=== PATIENT | female | born 1950 | race African-American/Black ===

== ENCOUNTER → 2017-04-29 | Outpatient (CLI) | payer MEDICARE, OTHER ==
[~2017-04-29] MED LIST: AMINOPHYLLINE INJ/PF 250 MG/10 ML SDV IV ONE; REGADENOSON INJ 0.4 MG/5 ML DISP.SYRIN IV ONE
--- NOTE | 2017-04-29 12:59 | DRAGON STRESS TEST REPORT ---
INTRAVENOUS LEXISCAN CARDIOLITE STRESS TEST USING SINGLE PHOTON EMMISION COMPUTERIZED TOMOGRAPHIC. DATE OF PROCEDURE: April 29, 2017 INDICATION : Chest pain CARDIAC RISK FACTORS: Hypertension, dyslipidemia, abnormal EKG. RESTING EKG: Sinus rhythm, LVH with secondary ST-T wave changes. STRESS EKG: No significant changes noted with LexiScan bolus REASON FOR TERMINATION: Protocol. PROCEDURE REPORT: Baseline heart rate 72 beats per minute with blood pressure of 146/81. Patient had no significant complaints. Heart rate at 2 minutes post bolus 91 with a blood pressure of 163/62 3 minutes post bolus heart rate 76 with blood pressure of 151/85. No significant EKG changes were noted. Patient had no significant complaints during the procedure or postprocedure. Patient injected with Aminophyllin 75 mg at 3 minutes or later after Lexiscan bolus. CONCLUSIONS: Normal EKG and hemodynamic response to IV LexiScan. NUCLEAR DATA: At rest the patient was given [10.13] millicuries of technetium 99 sestamibi injected intravenously. As per protocol rest gated SPECT images were obtained. Subsequently the patient was given intravenous LexiScan at a dose of 0.4 mg in 5 mL intravenously, followed by flush with normal saline. Subsequently the stress dose of [30.7] millicuries of technetium 99 sestamibi was injected intravenously. As per protocol stress gated images were obtained. NUCLEAR INTERPRETATION: Both raw and processed data were used for interpretation. Visual, qualitative, computer-generated quantitative data was used. There was good myocardial uptake of technetium compound. Motion artifact and soft tissue attenuations were noted. Increased visceral uptake was noted. Significant diaphragmatic attenuation and also breast tissue attenuation was noted. Mild decreased uptake was noted involving the basal and mid inferior wall and also mid anterior wall, these are felt to be related to attenuation artifact and no definitive areas of transient perfusion defect noted. Clinical correlation is requested. No definitive areas of fixed perfusion defect or scars noted. EKG gated imaging showed LV EF at 47] %, rest and stress gated EF similar visually. T. I D. ratio was 0.97. Lung heart ratio noted to be within normal limits 0.30. No significant extracardiac and abnormal radiotracer activities were noted. RV free wall uptake was noted to be borderline increased. IMPRESSION: Also refer to comments under nuclear interpretation. Also test results needs to be interpreted in the context of pretest probability. 1. There is no definitive scintigraphic evidence of LexiScan induced myocardial ischemia. However there was significant diaphragmatic and breast tissue attenuation artifacts were noted which reduces confidence in the test to some extent. Clinical correlation is requested. 2. There is no definitive scintigraphic evidence of myocardial infarction/scar. 3. EKG gated imaging shows left ejection fraction of approximately 47 %. 4. Clinical correlation requested as occasionally single vessel disease or balanced ischemia could be missed. In approximately 10% of the cases Lexiscan may not cause adequate vasodilatory stress. RECOMMENDATIONS: Aggressive risk factor modification, medical therapy. Clinical correlation with echocardiogram derived ejection fraction. Inability to exercise by itself can lead to increased cardiovascular event risks. Consider cardiology consultation and or follow-up if clinically indicated. I AM AVAILABLE FOR CARDIOLOGY CONSULTATION AND FOLLOWUP IF REQUESTED BY MARIBEL Macias M.D., JONI Senior C Developer palm and back forger, Board certified in cardiovascular diseases, Nuclear cardiology, Echocardiography Cardiac CT and cardiac MRI Ph. [phone] [facility] HOSPITALAnli
== END ==
LOC: RAD 07:18
PROVIDERS: ATTEND Internal Medicine
DX: R07.9 Chest pain, unspecified (principal); R94.31 Abnormal electrocardiogram [ECG] [EKG]
CPT/HCPCS: 93017; 78452; A9500; J2785; J0280; Q9969

== ENCOUNTER → 2017-10-07 | Outpatient (CLI) | payer MEDICARE, OTHER ==
--- NOTE | 2017-10-07 13:54 | RADIOLOGY REPORT (SQ) ---
EXAM DESCRIPTION: CHEST PA/LATERAL COMPLETED DATE/TIME: 10/07/2017 11:15 am REASON FOR STUDY: COUGH COMPARISON: Chest film 06/19/2016, 06/26/2015 CT chest 09/20/2015 EXAM PARAMETERS: NUMBER OF VIEWS: two views TECHNIQUE: Digital Frontal and Lateral radiographic views of the chest acquired. RADIATION DOSE: NA LIMITATIONS: Large patient FINDINGS: LUNGS AND PLEURA: No opacities, masses or pneumothorax. No pleural effusion. MEDIASTINUM AND HILAR STRUCTURES: No masses or contour abnormalities. HEART AND VASCULAR STRUCTURES: Borderline cardiomegaly BONES: Osteoporotic without acute compression deformity HARDWARE: None in the chest. OTHER: No other significant finding. IMPRESSION: NO SIGNIFICANT RADIOGRAPHIC FINDING IN THE CHEST. TECHNICAL DOCUMENTATION: JOB ID: [id number] [employer]- All Rights Reserved
== END ==
LOC: OD 10:59
DX: R05 Cough (principal)
CPT/HCPCS: 71046

== ENCOUNTER → 2018-04-12 | Outpatient (CLI) | payer MEDICARE, OTHER | LOC: OD 10:14 | PROVIDERS: ATTEND Otolaryngology | DX: J01.91 Acute recurrent sinusitis, unspecified (principal) | CPT/HCPCS: 36415; 82785; 86003 ==

== ENCOUNTER 2018-06-09 09:00 | Observation (INO) | payer MEDICARE, OTHER ==
--- NOTE | 2018-06-04 12:58 | RADIOLOGY REPORT (SQ) ---
EXAM DESCRIPTION: CHEST PA/LATERAL COMPLETED DATE/TIME: 06/04/2018 12:36 pm REASON FOR STUDY: PRE OP COMPARISON: 10/07/2017. EXAM PARAMETERS: NUMBER OF VIEWS: two views TECHNIQUE: Digital Frontal and Lateral radiographic views of the chest acquired. RADIATION DOSE: NA LIMITATIONS: none FINDINGS: LUNGS AND PLEURA: No opacities, masses or pneumothorax. No pleural effusion. MEDIASTINUM AND HILAR STRUCTURES: No masses or contour abnormalities. HEART AND VASCULAR STRUCTURES: Heart normal size. No evidence for failure. BONES: No acute findings. HARDWARE: None in the chest. OTHER: No other significant finding. IMPRESSION: NO SIGNIFICANT RADIOGRAPHIC FINDING IN THE CHEST. TECHNICAL DOCUMENTATION: JOB ID: [id number] [employer]- All Rights Reserved Reading location - IP/workstation name: [email or web address]
--- NOTE | 2018-06-04 13:01 | EKG REPORT ---
SEVERITY:- ABNORMAL ECG - SINUS RHYTHM LVH WITH IVCD, LAD AND SECONDARY REPOL ABNRM LATERAL INFARCT, AGE INDETERMINATE : Confirmed by: Sincere Morrow MD 04-Jun-2018 13:00:37
[2018-06-04 13:09] LABS: ABSOLUTE EOSINOPHILS # (AUTO) 0.1 10^3/uL (0.0-0.6); ABSOLUTE LYMPHOCYTES (AUTO) 2.4 10^3/uL (0.5-4.7); ABSOLUTE MONOCYTES (AUTO) 0.5 10^3/uL (0.1-1.4); ABSOLUTE NEUT (AUTO) 2.9 10^3/uL (1.7-8.2); BASOPHILS % (AUTO) 0.7 % (0-2); EOSINOPHILS % (AUTO) 2.3 % (0-6); HEMATOCRIT 40.3 % (36.0-47.0); HEMOGLOBIN 13.4 g/dL (12.0-15.5); LYMPHOCYTES % (AUTO) 40.2 % (13-45); MEAN CORPUSCULAR HEMOGLOBIN 26.7 pg (27.0-33.4); MEAN CORPUSCULAR HGB CONC 33.3 g/dL (32.0-36.0); MEAN CORPUSCULAR VOLUME 80 fl (80-97); MONOCYTES % (AUTO) 8.3 % (3-13); PLATELET COUNT 227 10^3/uL (150-450); RED BLOOD COUNT 5.03 10^6/uL (3.72-5.28); RED CELL DISTRIBUTION WIDTH 13.8 % (11.5-14.0); SEGMENTED NEUTROPHILS % (AUTO) 48.5 % (42-78); TOTAL CELLS COUNTED % (AUTO) 100 %; WHITE BLOOD COUNT 5.9 10^3/uL (4.0-10.5)
[2018-06-04 13:41] LABS: ANION GAP 13 (5-19); BLOOD UREA NITROGEN 17 mg/dL (7-20); CALCIUM 9.7 mg/dL (8.4-10.2); CARBON DIOXIDE 29 mmol/L (22-30); CHLORIDE 105 mmol/L (98-107); GLUCOSE 114 mg/dL (75-110); POTASSIUM 4.3 mmol/L (3.6-5.0); SODIUM 147.1 mmol/L (137-145)
[~2018-06-09 09:00] MED LIST changes: -AMINOPHYLLINE INJ/PF 250 MG/10 ML SDV IV ONE; +CEFAZOLIN 2 GM/D5W RTU 2 GM/50 ML RTUPB IV PRN; +LACTATED RINGERS 1000 ML IV PRN; +LIDOCAINE 0.5% INJ-PF (5 MG/ML) 50 ML SDV SUBCUT PRN; -REGADENOSON INJ 0.4 MG/5 ML DISP.SYRIN IV ONE
[2018-06-09] MEDS ORDERED: ONDANSETRON HCL INJ/PF 4 MG/2 ML SDV ONE ×2 (09:08→19:19)
[2018-06-09] MEDS ORDERED: GLYCOPYRROLATE 1 MG/5 ML SYRINGE ONE (09:08)
[2018-06-09] MEDS ORDERED: SUCCINYLCHOLINE CHLORIDE INJ 200 MG/10 ML VIAL ONE (09:08)
[2018-06-09] MEDS ORDERED: DEXAMETHASONE SOD PHOSPHATE INJ 4 MG/1 ML VIAL ONE (09:08)
[2018-06-09] MEDS ORDERED: FENTANYL CITRATE INJ/PF 250 MCG/5 ML AMPULE ONE (10:25)
[2018-06-09] MEDS ORDERED: ACETAMINOPHEN 1,000 MG/100 ML RTUPB IV ONE (10:26)
[2018-06-09] MEDS ORDERED: MIDAZOLAM 2 MG/2 ML INJ ONE (10:26)
[2018-06-09] MEDS ORDERED: PROPOFOL INJ 200 MG/20 ML VIAL IV ONE ×2 (10:26→15:22)
[2018-06-09 10:36] LABS: ALBUMIN 4.6 g/dL (3.5-5.0); PHOSPHORUS 4.3 mg/dL (2.5-4.5)
[2018-06-09] MEDS ORDERED: LIDOCAINE 2%/EPINEPHRINE INJ 1.7 ML CARTRIDGE ONE (12:03)
--- NOTE | 2018-06-09 13:57 | EKG REPORT ---
SEVERITY:- ABNORMAL ECG - SINUS RHYTHM LVH WITH IVCD AND SECONDARY REPOL ABNRM LATERAL INFARCT, AGE INDETERMINATE : Confirmed by: Sincere Morrow MD 09-Jun-2018 13:55:49
[2018-06-09] MEDS ORDERED: EPHEDRINE SULFATE INJ 50 MG/1 ML AMPULE ONE (14:24)
[2018-06-09] MEDS ORDERED: PROMETHAZINE HCL INJ 25 MG/1 ML VIAL IV PRN ×4 (14:55→19:29)
[2018-06-09] MEDS ORDERED: DIPHENHYDRAMINE HCL 50 MG/ML VIAL IV PRN ×2 (14:55→19:29)
[2018-06-09] MEDS ORDERED: MORPHINE SULFATE 10 MG/ML INJ IV PRN ×2 (14:55→18:23)
[2018-06-09] MEDS ORDERED: MEPERIDINE HCL/PF INJ 25 MG/1 ML DISP.SYRIN IV PRN (14:55)
[2018-06-09] MEDS ORDERED: FENTANYL CITRATE INJ/PF 100 MCG/2 ML AMPUL IV PRN ×5 (14:55→19:29)
[2018-06-09] MEDS ORDERED: RINGERS SOLUTION,LACTATED 1,000 ML IV PRN (18:23)
[2018-06-09] MEDS ORDERED: HYDROCODONE/ACETAMINOPHEN 5-325 MG TABLET PO PRN (18:23)
[2018-06-09] MEDS ORDERED: ONDANSETRON HCL INJ/PF 4 MG/2 ML SDV IV PRN ×2 (18:23→19:29)
--- NOTE | 2018-06-09 19:25 | PDOC CONSULTATION ---
Consultation Consult Date: 06/09/18 Attending physician:: CHANCE OLIVEIRA Consult reason:: Preop cardiovascular clearance History of Present Illness Admission Date/PCP: 06/09/18 09:20 MERCED YADAV MD Patient complains of: Patient here for thyroid surgery. History of Present Illness: SHAY PORTILLO is a 67 year old female, who is preop for thyroid surgery. Patient had some EKGs which showed some changes as reported to be consistent with prior lateral HI. I was therefore asked to evaluate patient and cleared her. On questioning patient denied any recent chest, neck discomfort for at least last 2-4 weeks. She denied any change in shortness of breath. She is chronically short of breath on [id number] exertion but this has not worsened. Patient has chronic intermittent pedal edema again this has not changed. Patient denied any palpitations, syncope, near syncope. Patient had a stress test last year which was noted to be negative for pharmacologic stress- induced ischemia. A 2D echocardiogram in 2013 had shown normal LVEF. Patient does describe history of loud habitual snoring, daytime fatigue and sleepiness. Past Medical History Cardiac Medical History: Reports: Hypertension, Heart Murmur Denies: Atrial Fibrillation, Congestive Heart Failure, Coronary Artery Disease, Myocardial Infarction, Hyperlipidema, Peripheral Vascular Disease Pulmonary Medical History: Denies: Sleep Apnea - NOT DIAGNOSED- HAVING TEST SOON Neurological Medical History: Endocrine Medical History: Reports: Hypothyroidism - NODULES ON THYROID Denies: Diabetes Mellitus Type 1, Diabetes Mellitus Type 2, Hyperthyroidism Malignancy Medical History: GI Medical History: Reports: Gastroesophageal Reflux Disease Denies: Crohn's Disease, Hiatal Hernia Musculoskeltal Medical History: Reports: Arthritis Denies: Fibromyalgia Hematology: Past Surgical History Past Surgical History: Reports: Tubal Ligation Denies: Amputation, Appendectomy, Section, Cholecystectomy, Colostomy, Coronary Artery Bypass Graft, Gastric Bypass Surgery, Herniorrhaphy, Hysterectomy, Mastectomy, Pacemaker, Tonsillectomy Social History Information Source: Patient Smoking Status: Former Smoker Hx Recreational Drug Use: No Hx Prescription Drug Abuse: No - Advance Directive Resuscitation Status: Full Code Family History Family History: Hypertension Parental Family History Reviewed: Yes Children Family History Reviewed: Yes Sibling(s) Family History Reviewed.: Yes Medication/Allergy Home Medications: Amlodipine Besylate 10 mg PO DAILY 12/02/15 Cetirizine HCl [Zyrtec 10 mg Tablet] 1 tab PO DAILY 12/02/15 Furosemide [Lasix 40 mg Tablet] 40 mg PO DAILY 12/02/15 Losartan Potassium 100 mg PO DAILY 12/02/15 Allergies/Adverse Reactions: No Known Allergies Allergy (Verified 06/04/18 10:43) Review of Systems Review of Systems: Please see history of present illness and past medical history as wall. Constitutional: No fever or chills reported. Head : No recent chronic headaches, recent head injury. Eyes: No recent eye pain, diplopia, redness, discharge, acute visual changes. Ears: No recent chronic ear pain, acute hearing loss, ear discharge. Oral cavity: No recent ulcerations, bleeding, oral cavity discomfort. Neck: No recent acute neck pain reported. Hematologic: No recent easy bruising or bleeding. Lymphatic: No recent lymph node enlargement reported. Cardiovascular system review: See history of present illness. Respiratory system review: No hemoptysis or blood clots in the lungs reported. Mild Shortness of breath on exertion Gastrointestinal system review: Negative for any recent acute hematemesis, melena. Genitourinary system review: No recent acute or chronic hematuria, flank pain, UTI etc. reported. Skin system review: Negative for any recent abnormal bruising, no rash, no pruritus reported. Neurologic: No prior history of strokes, mini strokes, seizure disorder. Psychologic: No history of major psychosis or major depression reported. Musculoskeletal: Minor aches and pains reported. No acute joint swelling reported. Endocrine: No recent polyuria, polydipsia, recent heat or cold intolerance. Physical Exam Vital Signs: Temp Pulse Resp BP Pulse Ox 98.2 F 64 16 189/65 H 96 06/09/18 09:30 06/09/18 09:30 06/09/18 09:30 06/09/18 09:30 06/09/18 09:30 Intake & Output 06/08/18 06/09/18 06/10/18 06:59 06:59 06:59 Intake Total 50 Balance 50 Exam: GENERAL: well-nourished and in no acute distress. Alert and oriented x3 HEAD: Atraumatic, normocephalic. EYES: Pupils equal round and reactive to light, extraocular movements intact, sclera anicteric, conjunctiva are normal. ENT: TMs normal, nares patent, oropharynx clear without exudates. Moist mucous membranes. No oral ulcerations or bleeding gums noted NECK: supple without lymphadenopathy. Trachea is central. No cervical or axillary lymphadenopathy noted. Carotids are 2+, JVD WNL mild thyroid enlargement noted. LUNGS: Respiration seems nonlabored, no significant accessory muscle action noted. Breath sounds clear to auscultation bilaterally and equal noted. No wheezes rales or rhonchi noted. No significant dullness noted on percussion. CHEST: Palpation of the chest wall shows no significant chest wall tenderness. 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 ABDOMEN: Soft, no significant tenderness appreciated, normoactive bowel sounds. No guarding, no rebound. No rigidity noted . No masses appreciated. EXTREMITIES: Pedal pulses are 1-2+, no calf tenderness noted. No clubbing or cyanosis. negative pedal edema noted NEUROLOGICAL: Focused neurological exam showed no significant neurologic deficit. Normal speech, no focal weakness appreciated. PSYCH: Normal mood, normal affect. Judgment and insight within normal limits. SKIN: No significant ecchymosis, skin is noted to be warm. MUSCULOSKELETAL EXAM: No significant acute joint swelling noted. Results Laboratory Results: 06/04/18 12:00 06/09/18 09:48 06/09/18 06/09/18 06/09/18 09:48 09:48 09:48 Potassium 4.0 Calcium 10.0 Phosphorus 4.3 Magnesium 1.8 Albumin 4.6 PTH Intact 167.9 H EKG Comments: Showed sinus rhythm, LVH with minor nonspecific ST-T wave changes, versus LVH related Impressions: Chest X-Ray 06/04/18 00:00 IMPRESSION: NO SIGNIFICANT RADIOGRAPHIC FINDING IN THE CHEST. Assessment & Plan - Diagnosis (1) Preoperative cardiovascular examination Is this a current diagnosis for this admission?: Yes (2) Hypertension Qualifiers: Hypertension type: essential hypertension Qualified Code(s): I10 - Essential (primary) hypertension Is this a current diagnosis for this admission?: Yes (3) Sleep-disordered breathing Is this a current diagnosis for this admission?: Yes (4) Obesity Qualifiers: Obesity type: unspecified obesity type Obesity classification: unspecified obesity classification Is this a current diagnosis for this admission?: Yes (5) Thyroid mass of unclear etiology Is this a current diagnosis for this admission?: Yes - Notes Notes: Preop cardiovascular examination: Patient noted to be stable from cardiac standpoint without any chest pain, significant shortness of breath or any cardiac dysrhythmia for at least last 2-4 weeks. Patient maintaining sinus rhythm. Patient is in stable cardiac condition to go for surgery. Patient was therefore cleared. Patient may benefit from beta-brian therapy postop. Hypertension: Resume antihypertensive postop. Obesity: Patient has been encouraged in gradual weight loss. Sleep disordered breathing: Patient does describe history of loud snoring, daytime fatigue and sleepiness. Patient will benefit from a sleep apnea evaluation as an outpatient. I did give my card for such an evaluation if she wishes to follow-up with me. - Time Time Spent: 30 to 50 Minutes - More than 50% of the time spent coordinating care , discussing management plans with involved caregivers. Management plans discussed with involved personnels. Medical decision making was of moderate to high complexity, patient's has multiple comorbidities. Medications reviewed and adjusted accordingly: Yes
[2018-06-09] MEDS ORDERED: ONDANSETRON 4 MG TAB.RAPDIS PO PRN (19:28)
--- NOTE | 2018-06-09 19:49 | EKG REPORT ---
SEVERITY:- DEFECTIVE ECG - SINUS RHYTHM IVCD, CONSIDER ATYPICAL LBBB : Confirmed by: Sincere Morrow MD 09-Jun-2018 19:48:05
[2018-06-09 21:27] LABS: ALBUMIN 4.1 g/dL (3.5-5.0); PHOSPHORUS 5.3 mg/dL (2.5-4.5)
[2018-06-10] MEDS ORDERED: ACETAMINOPHEN 325 MG TABLET ONE (09:52)
[2018-06-10] MEDS ORDERED: ACETAMINOPHEN 325 MG TABLET PO PRN (09:58)
[2018-06-10] MEDS ORDERED: FUROSEMIDE 40 MG TABLET PO SCH (10:00)
[2018-06-10] MEDS ORDERED: LOSARTAN POTASSIUM 50 MG TABLET PO SCH (10:00)
[2018-06-10] MEDS ORDERED: CETIRIZINE 10 MG TABLET PO SCH (10:00)
[2018-06-10] MEDS ORDERED: AMLODIPINE BESYLATE 10 MG TABLET PO SCH (10:00)
[2018-06-10 10:58] LABS: CALCIUM 8.9 mg/dL (8.4-10.2); PHOSPHORUS 4.4 mg/dL (2.5-4.5)
[2018-06-10 15:22] LABS: ALBUMIN 3.8 g/dL (3.5-5.0); CALCIUM 8.4 mg/dL (8.4-10.2); PHOSPHORUS 4.4 mg/dL (2.5-4.5)
[2018-06-10 18:20] VITALS: BP 139/61
--- NOTE | 2018-06-10 20:31 | PDOC PROGRESS REPORT ---
Subjective Progress Note for:: 06/10/18 Subjective:: Patient seen postop day 1. Doing well. Patient seems to be doing better with gradual improvement. Pt is denying any chest arm or neck discomfort. Patient denying any PND, orthopnea. Patient denied any sustained palpitations, dizziness, syncope, near syncope. Patient denying any fever chills. Patient denying any other significant discomfort. Patient is maintaining sinus rhythm. Review of systems: Rest review of systems negative. Medications: Medications have been reviewed. Reason For Visit: S/P TOTAL THYROIDECTOMY WITH PLAN FOR POSTOP Physical Exam Vital Signs: Temp Pulse Resp BP Pulse Ox 97.9 F 80 16 139/61 H 98 06/10/18 18:10 06/10/18 18:10 06/10/18 18:10 06/10/18 18:10 06/10/18 18:10 Pulse Oximeter Continuous Start: 06/09/18 18: 25 Freq: RTQ4 Status: Complete Document 06/10/18 12:00 [facility] (Rec: 06/10/18 12:08 [facility] [id number]) Pulse Oximetry Assessment Oxygen Saturation (92-100) 91 Oxygen Delivery Method Room Air Fraction of Inspired Oxygen (FIO2) 21 Equipment Usage Equipment in Use Continuous SpO2 Machine # [id number] Intake & Output 06/09/18 06/10/18 06/11/18 06:59 06:59 06:59 Intake Total 1620 480 Output Total 300 600 Balance 1320 -120 Weight 128.2 kg Exam: GENERAL: well-nourished and in no acute distress. Alert and oriented x3 HEAD: Atraumatic, normocephalic. EYES: Pupils equal round and reactive to light, extraocular movements intact, sclera anicteric, conjunctiva are normal. ENT: TMs normal, nares patent, oropharynx clear without exudates. Moist mucous membranes. No oral ulcerations or bleeding gums noted NECK: supple without lymphadenopathy. Trachea is central. No cervical or axillary lymphadenopathy noted. Carotids are 2+, JVD WNL scar of thyroid surgery noted. LUNGS: Respiration seems nonlabored, no significant accessory muscle action noted. Breath sounds clear to auscultation bilaterally and equal noted. No wheezes rales or rhonchi noted. No significant dullness noted on percussion. CHEST: Palpation of the chest wall shows no significant chest wall tenderness. 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 ABDOMEN: Soft, no significant tenderness appreciated, normoactive bowel sounds. No guarding, no rebound. No rigidity noted . No masses appreciated. EXTREMITIES: Pedal pulses are 1-2+, no calf tenderness noted. No clubbing or cyanosis. negative pedal edema noted NEUROLOGICAL: Focused neurological exam showed no significant neurologic deficit. Normal speech, no focal weakness appreciated. PSYCH: Normal mood, normal affect. Judgment and insight within normal limits. SKIN: No significant ecchymosis, skin is noted to be warm. MUSCULOSKELETAL EXAM: No significant acute joint swelling noted. Results Laboratory Results: 06/04/18 12:00 06/09/18 09:48 06/09/18 06/09/18 06/10/18 21:05 21:05 10:07 Calcium 9.0 8.9 Phosphorus 5.3 H 4.4 Magnesium 1.5 L 1.6 Albumin 4.1 4.0 PTH Intact 8.9 L 06/10/18 06/10/18 10:07 14:53 Calcium 8.4 Phosphorus 4.4 Magnesium 1.5 L Albumin 3.8 PTH Intact 15.9 EKG Comments: Telemetry shows sinus rhythm without any sustained tachycardia or bradycardia. Impressions: Chest X-Ray 06/04/18 00:00 IMPRESSION: NO SIGNIFICANT RADIOGRAPHIC FINDING IN THE CHEST. Assessment & Plan - Diagnosis (1) Preoperative cardiovascular examination Is this a current diagnosis for this admission?: Yes (2) Hypertension Qualifiers: Hypertension type: essential hypertension Qualified Code(s): I10 - Essential (primary) hypertension Is this a current diagnosis for this admission?: Yes (3) Sleep-disordered breathing Is this a current diagnosis for this admission?: Yes (4) Obesity Qualifiers: Obesity type: unspecified obesity type Obesity classification: unspecified obesity classification Is this a current diagnosis for this admission?: Yes (5) Thyroid mass of unclear etiology Is this a current diagnosis for this admission?: Yes - Notes Notes: Patient status post surgery. She has done well. Hypertension: Reasonably well-controlled continue with home antihypertensive. Sleep disordered breathing: Patient prefers to follow-up with me for further evaluation and management of sleep apnea if present. Obesity: Patient has been advised in gradual weight loss. Thyroid mass: Patient has been advised to follow-up with surgeon regarding etiology etc. - Time Time with patient: 15-25 minutes - More than 50% of the time spent coordinating care, discussing management plans with involved caregivers. Management plans discussed with involved personnels. Medical decision making was of moderate complexity, patient's has multiple comorbidities. Medications reviewed and adjusted accordingly: Yes
--- NOTE | 2018-06-13 23:10 | OPERATIVE REPORT E ---
Operative Report NAME: SHAY PORTILLO : 1950 AGE: 67Y DATE OF SURGERY: 06/09/2018 ROOM: 405 PREOPERATIVE DIAGNOSIS: MULTINODULAR GOITER. POSTOPERATIVE DIAGNOSIS: MULTINODULAR GOITER. OPERATION PERFORMED: 1. Total thyroidectomy. 2. Intraoperative noninvasive nerve monitoring (NIM) SURGEON: AARON CORTES D.O. ANESTHESIA: General endotracheal. ANESTHESIA STAFF: Tabatha ZAMARRIPA. ESTIMATED BLOOD LOSS: 30 mL. FLUIDS: 1100 mL. COMPLICATIONS: None. DRAINS: None. SPONGE COUNT: Verified. MATERIALS FORWARDED SPECIMEN: Total thyroid gland specimen. FINDINGS: 1. Total thyroid gland specimen with dominant right thyroid nodule measuring 39 x 30 mm in dimensions. 2. Parathyroid gland prospects X 4 were identified and preserved, and the smallest of the prospects, being the left superior parathyroid gland, was reimplanted into a pocket in the left strap muscle. 3. Bilateral recurrent laryngeal nerves were identified and preserved and were with adequate stimulation at 1 mAmp during the case as well as at the end of the case. 4. There was no concerning lymphadenopathy identified. INDICATIONS: This is a 67-year-old -[place] female who was seen and evaluated in the [facility] office. The patient had been referred for and she complained of a history of multinodular goiter with worsening compressive symptoms over the past year. The patient was noted to have a right dominant nodule measuring 39 x 30 mm in dimensions. There was also a left thyroid nodule measuring 10 x 9.6 mm in dimension. After extensive discussion with the patient with consideration of the almost 4 cm nodule on the right, a 1 cm nodule on the left, and worsening compressive symptoms over the past year the patient desired to proceed with a total thyroidectomy. The risks and complications of the procedure were all discussed in detail with the patient. She voiced an understanding of the described surgical plan, agreed to proceed, and consent was obtained. PROCEDURE IN DETAIL: The patient was taken to the main operating room and was placed on the operating room table in the supine position. Appropriate monitors were placed. Using mask and IV access, general anesthesia was induced. The patient was transorally intubated with the NIM endotracheal tube without difficulty. The NIM nerve monitoring system was set up and tested appropriately before beginning the case. The patient underwent a planned surgical incision with the site marked with a surgical marking pen, which was next infiltrated with local anesthetic with epinephrine. The patient was then prepped and draped in a sterile fashion for thyroid surgery. At this point the skin was sharply incised down to the level of the subcutaneous tissues and platysma. Flaps were elevated in a subplatysmal plane without difficulty. The strap muscles were identified in the midline and were divided and exposed the thyroid gland. The left thyroid lobe was mobilized and the superior and inferior pole vasculature were divided with the Harmonic handpiece. Bipolar electrocautery was also used throughout the case. The gland was rolled more medially to expose the area of Cavazos's ligament. During this process left parathyroid gland prospects were identified and the smallest of the parathyroid gland prospects on either side, with the left superior which was confirmed as parathyroid gland tissue on frozen section evaluation. This was placed in saline and at the end of the case was reimplanted into a pocket in the left strap muscle and the pocket was oversewn with 6-0 Prolene suture. At this point the left recurrent laryngeal nerve was identified and preserved and tested appropriately at 1 mAmp. The area of Cavazos's ligament was released and the gland was brought onto the anterior tracheal aspect. Attention was turned to the right side. The strap muscles were lateralized as they had been on the left and the thyroid lobe was identified and mobilized. Superior and inferior pole vasculature was again clearly identified and divided with the Harmonic handpiece. There were 2 parathyroid gland prospects that were identified on the right and they were preserved. The gland was released and rolled more medial to expose the area of Cavazos's ligament. The right recurrent laryngeal nerve was identified and preserved. The gland was released from Cavazos's ligament and freed from the anterior tracheal wall. The pyramidal lobe was also identified and released. The thyroid gland specimen was passed off for permanent pathology evaluation. The wound bed was thoroughly irrigated and bipolar electrocautery was used to provide adequate hemostasis. Once achieved there was 1 piece of Surgicel approximately 2 x 2 cm in size that was placed over each recurrent laryngeal nerve distribution. The strap muscles were next reapproximated in the midline with 5-0 Vicryl suture. The reimplantation of the left superior parathyroid gland was addressed as above. The platysma was reapproximated with 5-0 Vicryl suture as was the deep subcutaneous tissue layers. Next, the deep dermal layers were reapproximated with 5-0 Monocryl suture. One final continuous deep dermal layer was placed to reapproximate the skin margins, and this was completed with 5-0 Monocryl suture. Next, the skin was cleaned and dried followed by placement of Mastisol and Steri-Strips. The patient was then returned to the anesthesia staff and was allowed to emerge from general anesthesia. The patient was extubated in the main operating room and was then transported to the postanesthesia recovery unit in stable condition. There were no complications. DICTATING PHYSICIAN: AARON CORTES D.O. [id number] PHY#: [id number] ID: [id number] JOB#: [id number] ACCT: [id number] cc:AARON CORTES D.O. > MTDD
== END 2018-06-10 18:54 | disposition home or self-care (01) ==
LOC: INTOOBSV 09:20 → INOR 09:20 → 4N 20:05
PROVIDERS: ADMIT Otolaryngology; ATTEND Otolaryngology
PROC: 0GBJ0ZZ Excision of Thyroid Gland Isthmus, Open Approach (ICD-10-PCS; 2018-06-09)
PROC: 0GTK0ZZ Resection of Thyroid Gland, Open Approach (ICD-10-PCS; principal; 2018-06-09 12:00)
DX: E04.2 Nontoxic multinodular goiter (principal); Z01.810 Encounter for preprocedural cardiovascular examination; I10 Essential (primary) hypertension; G47.30 Sleep apnea, unspecified; E66.9 Obesity, unspecified; R94.31 Abnormal electrocardiogram [ECG] [EKG]; Z87.891 Personal history of nicotine dependence; Z82.49 Family history of ischemic heart disease and other diseases of the circulatory system; Z79.899 Other long term (current) drug therapy
CPT/HCPCS: 93005 ×2; 36415 ×3; 82040 ×2; 82310 ×2; 83735 ×2; 84100 ×2; 84132; 85025; 80048; 83970 ×2; 88305 ×2; 88307 ×2; 88331 ×2; 71046; 93010 ×2; 94762 ×2; 60240; G0378 ×3; A9270 ×5; J2250; J3490 ×3; J1100; J3010; J0330; J2405; J2704; J0690; J0131; 320

== ENCOUNTER → 2018-06-14 | Outpatient (CLI) | payer MEDICARE, OTHER ==
[2018-06-14 17:52] LABS: ALBUMIN 4.1 g/dL (3.5-5.0); CALCIUM 7.8 mg/dL (8.4-10.2); PHOSPHORUS 5.2 mg/dL (2.5-4.5)
== END ==
LOC: OD 16:53
PROVIDERS: ATTEND Otolaryngology
DX: E04.2 Nontoxic multinodular goiter (principal)
CPT/HCPCS: 36415; 82040; 82310; 83735; 83970; 84100

== ENCOUNTER → 2018-07-30 | Outpatient (CLI) | payer MEDICARE, OTHER | LOC: OD 11:59 | PROVIDERS: ATTEND Internal Medicine | DX: E89.0 Postprocedural hypothyroidism (principal); E04.2 Nontoxic multinodular goiter; J30.9 Allergic rhinitis, unspecified | CPT/HCPCS: 36415; 82785; 83519; 84439; 86003 ==

== ENCOUNTER → 2018-10-22 | Outpatient (CLI) | payer MEDICARE, OTHER ==
--- NOTE | 2018-10-22 15:36 | RADIOLOGY REPORT (SQ) ---
EXAM DESCRIPTION: MRI LT UPPER JOINT WITHOUT COMPLETED DATE/TIME: 10/22/2018 1:30 pm REASON FOR STUDY: IMPINGEMENT SYNDROME OF LEFT SHOULDER (M75.42) M75.42 IMPINGEMENT SYNDROME OF LEF T SHOULDER COMPARISON: None. TECHNIQUE: Left shoulder images acquired and stored on PACS. Multiplanar imaging to include fat sens itive sequences such as T1, water sensitive sequences such as FST2/STIR, cartilage sensitive sequence s such as FSPD/gradient-echo sequences. LIMITATIONS: None. FINDINGS: BONE MARROW AND CORTEX: No worrisome bone lesions or marrow replacement. No occult fractur es. JOINT OR BURSAL EFFUSION: There is fluid in the subacromial/subdeltoid bursa related to a full-thickn ess tear in the distal infraspinatus tendon GLENO-HUMERAL ARTICULATION: No malalignment. There is focal chondromalacia along the anterior half o f the bony glenoid with subcortical cyst formation best shown on coronal images 7 and 8. ACROMION AND AC JOINT: Type 2 acromion, with mild acromioclavicular joint hypertrophy on sagittal im age 9 and coronal image 9. ROTATOR CUFF AND INTERVAL: There is full-thickness tear along the anterior edge of the infraspinatus tendon, best shown on sagittal images 3-6, and coronal images 10 through 12. There is mild undersurf cristiano tendinopathy of the remainder of the infraspinatus tendon, and mild tendinopathy of the distal johnson praspinatus tendon. Subscapularis is intact. No rotator interval tear LABRUM AND BICEPS LABRAL COMPLEX: Intra-articular air long head biceps tendon is intact. Superior labrum grossly intact. REMAINDER OF LABRUM AND IGHL : No gross tear or paralabral cyst formation. Labral evaluation is less than optimal without joint distention. There is thickening of IGHL, and a small axillary recess of the glenohumeral joint suggesting adhesive capsulitis. PERIARTICULAR AND ADJACENT SOFT TISSUES: No masses or abnormal nodes. OTHER: No other significant finding. IMPRESSION: Full-thickness tear anterior edge of the infraspinatus tendon Small axillary recess of the left shoulder joint with thickening of the inferior glenohumeral ligamen t suggesting adhesive capsulitis TECHNICAL DOCUMENTATION: JOB ID: [id number] [employer]- All Rights Reserved Reading location - IP/workstation name: [email or web address]
== END ==
LOC: RAD 12:33
PROVIDERS: ATTEND Orthopaedic Surgery Sports Medicine
DX: M75.42 Impingement syndrome of left shoulder (principal); M75.122 Complete rotator cuff tear or rupture of left shoulder, not specified as traumatic

== ENCOUNTER → 2018-11-23 | Outpatient (CLI) | payer MEDICARE, OTHER ==
[2018-11-23 08:24] LABS: ABSOLUTE BASOPHILS # (AUTO) 0.1 10^3/uL (0.0-0.2); ABSOLUTE EOSINOPHILS # (AUTO) 0.2 10^3/uL (0.0-0.6); ABSOLUTE LYMPHOCYTES (AUTO) 2.8 10^3/uL (0.5-4.7); ABSOLUTE MONOCYTES (AUTO) 0.7 10^3/uL (0.1-1.4); ABSOLUTE NEUT (AUTO) 3.3 10^3/uL (1.7-8.2); BASOPHILS % (AUTO) 0.7 % (0-2); EOSINOPHILS % (AUTO) 2.7 % (0-6); HEMATOCRIT 39.2 % (36.0-47.0); HEMOGLOBIN 13.1 g/dL (12.0-15.5); LYMPHOCYTES % (AUTO) 39.6 % (13-45); MEAN CORPUSCULAR HEMOGLOBIN 26.3 pg (27.0-33.4); MEAN CORPUSCULAR HGB CONC 33.6 g/dL (32.0-36.0); MEAN CORPUSCULAR VOLUME 78 fl (80-97); MONOCYTES % (AUTO) 9.9 % (3-13); PLATELET COUNT 233 10^3/uL (150-450); RED CELL DISTRIBUTION WIDTH 13.6 % (11.5-14.0); SEGMENTED NEUTROPHILS % (AUTO) 47.1 % (42-78); TOTAL CELLS COUNTED % (AUTO) 100 %
[2018-11-23 08:48] LABS: ALANINE AMINOTRANSFERASE 11 U/L (9-52); ALBUMIN 4.3 g/dL (3.5-5.0); ALKALINE PHOSPHATASE 83 U/L (38-126); ANION GAP 10 (5-19); ASPARTATE AMINO TRANSFERASE 21 U/L (14-36); BILIRUBIN,DIRECT 0.3 mg/dL (0.0-0.4); BILIRUBIN,TOTAL 0.6 mg/dL (0.2-1.3); BLOOD UREA NITROGEN 16 mg/dL (7-20); CALCIUM 9.6 mg/dL (8.4-10.2); CARBON DIOXIDE 27 mmol/L (22-30); CHLORIDE 107 mmol/L (98-107); CHOLESTEROL 170.54 mg/dL (0-200); GLUCOSE 104 mg/dL (75-110); SODIUM 143.6 mmol/L (137-145); TOTAL PROTEIN 7.2 g/dL (6.3-8.2); TRIGLYCERIDES 126 mg/dL (<150)
[2018-11-23 08:58] LABS: DIRECT LDL 88 mg/dL (<100)
== END ==
LOC: OD 07:52
PROVIDERS: ATTEND Internal Medicine
DX: I10 Essential (primary) hypertension (principal); E78.5 Hyperlipidemia, unspecified; K21.9 Gastro-esophageal reflux disease without esophagitis; M19.90 Unspecified osteoarthritis, unspecified site; R53.83 Other fatigue
CPT/HCPCS: 36415; 80053; 80061; 84443; 85025

== ENCOUNTER → 2019-08-11 | Outpatient (CLI) | payer MEDICARE, OTHER ==
[2019-08-11 10:29] LABS: ABSOLUTE EOSINOPHILS # (AUTO) 0.2 10^3/uL (0.0-0.6); ABSOLUTE LYMPHOCYTES (AUTO) 1.8 10^3/uL (0.5-4.7); ABSOLUTE MONOCYTES (AUTO) 0.5 10^3/uL (0.1-1.4); ABSOLUTE NEUT (AUTO) 2.8 10^3/uL (1.7-8.2); BASOPHILS % (AUTO) 0.8 % (0-2); EOSINOPHILS % (AUTO) 3.7 % (0-6); HEMATOCRIT 38.2 % (36.0-47.0); HEMOGLOBIN 12.7 g/dL (12.0-15.5); LYMPHOCYTES % (AUTO) 33.7 % (13-45); MEAN CORPUSCULAR HEMOGLOBIN 26.5 pg (27.0-33.4); MEAN CORPUSCULAR HGB CONC 33.1 g/dL (32.0-36.0); MEAN CORPUSCULAR VOLUME 80 fl (80-97); MONOCYTES % (AUTO) 9.4 % (3-13); PLATELET COUNT 208 10^3/uL (150-450); RED BLOOD COUNT 4.78 10^6/uL (3.72-5.28); RED CELL DISTRIBUTION WIDTH 13.7 % (11.5-14.0); SEGMENTED NEUTROPHILS % (AUTO) 52.4 % (42-78); TOTAL CELLS COUNTED % (AUTO) 100 %; WHITE BLOOD COUNT 5.4 10^3/uL (4.0-10.5)
[2019-08-11 10:41] LABS: ALBUMIN 4.2 g/dL (3.5-5.0); ALKALINE PHOSPHATASE 86 U/L (38-126); ANION GAP 9 (5-19); ASPARTATE AMINO TRANSFERASE 23 U/L (14-36); BILIRUBIN,DIRECT 0.1 mg/dL (0.0-0.4); BILIRUBIN,TOTAL 0.7 mg/dL (0.2-1.3); BLOOD UREA NITROGEN 16 mg/dL (7-20); CARBON DIOXIDE 28 mmol/L (22-30); CHLORIDE 104 mmol/L (98-107); CHOLESTEROL 182.78 mg/dL (0-200); GLUCOSE 96 mg/dL (75-110); TOTAL PROTEIN 7.2 g/dL (6.3-8.2); TRIGLYCERIDES 151 mg/dL (<150)
[2019-08-11 10:52] LABS: DIRECT LDL 95 mg/dL (<100)
[2019-08-11 11:00] LABS: VLDL CHOLESTEROL 30.2 mg/dL (10-31)
== END ==
LOC: OD 09:19
PROVIDERS: ATTEND Internal Medicine
DX: I10 Essential (primary) hypertension (principal); R53.83 Other fatigue; E78.5 Hyperlipidemia, unspecified; E83.52 Hypercalcemia; E03.9 Hypothyroidism, unspecified; Z79.899 Other long term (current) drug therapy
CPT/HCPCS: 36415; 80053; 80061; 83036; 83525; 84443; 85025

== ENCOUNTER → 2019-11-30 | Outpatient (CLI) | payer MEDICARE, OTHER ==
[2019-11-30 12:53] LABS: A TYPE INFLUENZA AG NEGATIVE (NEGATIVE); B INFLUENZA AG NEGATIVE (NEGATIVE)
== END ==
LOC: OD 12:07
PROVIDERS: ATTEND Family Medicine
DX: R68.89 Other general symptoms and signs (principal)
CPT/HCPCS: 87070; 87804; 87880

== ENCOUNTER 2019-12-11 08:48 | Emergency (ER) | payer MEDICARE, OTHER ==
[2019-12-11] MEDS ORDERED: BENZONATATE 100 MG CAPSULE PO ONE (10:54)
[2019-12-11] MEDS ORDERED: PREDNISONE 20 MG TABLET PO ONE (10:54)
[2019-12-11] MEDS ORDERED: IPRATROPIUM/ALBUTEROL 0.5-2.5 MG/3 ML AMPUL NEB ONE (10:54)
--- NOTE | 2019-12-11 10:58 | ER Document Report ---
ED General - General Chief Complaint: Flu Symptoms Stated Complaint: FLU SYMPTOMS Primary Care Provider: DANIELLE MCKINNEY MD [Primary Care Provider] - Follow up as needed Mode of Arrival: Ambulatory Information source: Patient, [facility] Records Notes: 69-year-old female with hypertension presents with complaint of cough, fever, myalgia. Patient states cough has been persistent for 2 weeks. She describes it as a continuous nonproductive cough. Patient reports a fever of 102 approximately 1 week ago. She denies any chest pain except for when coughing. She denies shortness of breath. Patient has completed a course of azithromycin prescribed by her primary care physician 1 week ago. Patient did recently receive a flu and pneumonia shot. TRAVEL OUTSIDE OF THE [place] IN LAST 30 DAYS: No - HPI Onset: Other Onset/Duration: Persistent Quality of pain: Achy, Burning Severity: Mild Associated symptoms: Body/muscle aches, Chills, Nonproductive cough, Fever, Sore throat. denies: Nausea, Vomiting, Weakness Exacerbated by: Denies Relieved by: Denies Similar symptoms previously: Yes Recently seen / treated by doctor: Yes - Related Data Allergies/Adverse Reactions: No Known Allergies Allergy (Verified 12/11/19 10:06) Home Medications: Tamiful. Docusate as needed. [place]. Lisinopril 20 mg PO daily. Levothyroxine 100mcg PO daily. Norvasc 1 mg PO daily. Lasix 40 mg PO daily. Mobic 7.5mg PO daily Past Medical History - General Information source: Patient - Social History Smoking Status: Never Smoker Chew tobacco use (# tins/day): No Frequency of alcohol use: None Drug Abuse: None Lives with: Alone Family History: Hypertension Patient has suicidal ideation: No Patient has homicidal ideation: No - Past Medical History Cardiac Medical History: Reports: Hx Hypertension, Hx Heart Murmur Denies: Hx Atrial Fibrillation, Hx Congestive Heart Failure, Hx Coronary Artery Disease, Hx Heart Attack, Hx Hypercholesterolemia, Hx Peripheral Vascular Disease Pulmonary Medical History: Denies: Hx Sleep Apnea - NOT DIAGNOSED- HAVING TEST SOON Neurological Medical History: Endocrine Medical History: Reports: Hx Hypothyroidism - NODULES ON THYROID. Denies: Hx Diabetes Mellitus Type 1, Hx Diabetes Mellitus Type 2, Hx Graves' Disease, Hx Hyperthyroidism Malignancy Medical History: GI Medical History: Reports: Hx Gastroesophageal Reflux Disease. Denies: Hx Crohn's Disease, Hx Hiatal Hernia, Hx Irritable Bowel, Hx Liver Failure, Hx Pancreatitis, Hx Ulcer Musculoskeletal Medical History: Reports Hx Arthritis, Denies Hx Fibromyalgia, Denies Hx Muscular Dystrophy, Denies Hx Systemic Lupus Erythematosus Traumatic Medical History: Denies: Hx Fractures Past Surgical History: Reports: Hx Thyroid Surgery, Hx Tubal Ligation. Denies: Hx Appendectomy, Hx Bowel Surgery, Hx Section, Hx Cholecystectomy, Hx Colostomy, Hx Coronary Artery Bypass Graft, Hx Gastric Bypass Surgery, Hx Herniorrhaphy, Hx Hysterectomy, Hx Mastectomy, Hx Pacemaker, Hx Tonsillectomy - Immunizations Hx Diphtheria, Pertussis, Tetanus Vaccination: Yes Hx Pneumococcal Vaccination: 02/02/18 Review of Systems - Review of Systems Notes: REVIEW OF SYSTEMS: CONSTITUTIONAL : + fever, chills, or sweats. + recent illness. Denies weight loss, recent hospitalizations. EENT: Denies visual changes, eye pain. Denies oral lesions, difficulty swallowing. CARDIOVASCULAR: Denies chest pain. Denies palpitations. Denies lower extremity edema. RESPIRATORY: + cough. Denies shortness of breath, wheezing. GASTROINTESTINAL: Denies abdominal pain or distention. Denies nausea, vomiting, or diarrhea. Denies blood in vomitus, stools, or per rectum. Denies black, tarry stools. Denies constipation. GENITOURINARY: Denies difficulty urinating, painful urination, frequency, blood in urine, or vaginal discharge. MUSCULOSKELETAL: Denies back or neck pain or stiffness. Denies joint pain or swelling. SKIN: Denies rash, lesions or sores. HEMATOLOGIC : Denies easy bruising or bleeding. LYMPHATIC: Denies swollen glands. NEUROLOGICAL: Denies confusion or altered mental status. Denies loss of consciousness. Denies dizziness or lightheadedness. Denies headache. Denies weakness or paralysis. Denies problems difficulty with ambulation, slurred speech. Denies sensory loss, numbness, or tingling. Denies seizures. PSYCHIATRIC: Denies anxiety or stress. Denies depression, suicidal ideation, or homicidal ideation. Denies visual or auditory hallucinations. Physical Exam - Vital signs Vitals: Temp Pulse Resp BP Pulse Ox 98.6 F 70 20 155/77 H 97 12/11/19 08:57 12/11/19 08:57 12/11/19 08:57 12/11/19 08:57 12/11/19 08:57 - Notes Notes: PHYSICAL EXAMINATION: GENERAL: Well-appearing, well-nourished and in no acute distress. HEAD: Atraumatic, normocephalic. EYES: Pupils equal round and reactive to light, extraocular movements intact, conjunctiva are normal. ENT: Nares patent, oropharynx clear without exudates. Moist mucous membranes. NECK: Normal range of motion, supple without lymphadenopathy LUNGS: Bilateral rhonchi with expiratory wheezing. No increased work of breathing, no accessory muscle use. HEART: Regular rate and rhythm without murmurs ABDOMEN: Soft, nontender, nondistended abdomen. No guarding, no rebound. No masses appreciated. Female : deferred Musculoskeletal: Normal range of motion, no pitting or edema. No cyanosis. NEUROLOGICAL: Cranial nerves grossly intact. Normal speech, normal gait. Normal sensory, motor exams PSYCH: Normal mood, normal affect. SKIN: Warm, Dry, normal turgor, no rashes or lesions noted. Course - Re-evaluation Re-evalutation: Chest X-Ray 12/11/19 10:53 IMPRESSION: NO ACUTE RADIOGRAPHIC FINDING IN THE CHEST. Temp Pulse Resp BP Pulse Ox 98.6 F 70 20 155/77 H 97 12/11/19 08:57 12/11/19 08:57 12/11/19 08:57 12/11/19 08:57 12/11/19 08:57 Laboratory 12/11/19 11:20 Influenza A (Rapid) NEGATIVE Influenza B (Rapid) NEGATIVE 12/11/19 11:46 Patient reports feeling better after receiving breathing treatments. She states she has been able to cough up some mucus since having them. 12/11/19 11:47 12/11/19 12:46 Patient presents with a clinical history and exam most consistent with an acute viral bronchitis. Patient is overall well in appearance without tachypnea, hypoxemia, tachycardia, or difficulty with ambulation. Breath sounds are coarse bilaterally, but without evidence of increased work of breathing. No fever. Patient does have additional signs of upper respiratory infection including nasal congestion, sore throat, and sinus pressure. Influenza negative. Chest x-ray without evidence of pneumonia. Will treat with bronchodilators, single dose of dexamethasone, and Tessalon Perles. At this time will discharge with return precautions and follow-up recommendations. Verbal discharge instructions given a the bedside and opportunity for questions given. Medication warnings reviewed. Patient is in agreement with this plan and has verbalized understanding of return precautions and the need for primary care follow-up in the next 24-72 hours. Patient was evaluated and treated as appropriate for the patient's presenting symptoms and complaint, with consideration of any critical or life threatening conditions that may be associated with their obtained history and exam as noted above. All results were discussed with patient and... Patient provided the opportunity to ask questions, and express concerns. Patient was educated on treatments based on their presumed diagnosis as noted above. At this time we will discharge the patient with return precautions and follow-up recommendations. Verbal discharge instructions given a the bedside. Medication warnings reviewed. Patient is in agreement with this plan and has verbalized understanding of return precautions. After careful consideration I feel that that patient can be safely discharged from the emergency department, they were advised to followup with a primary care physician in 2-3 days. Dictation on this chart was performed using voice recognition software and may result in unintended grammatical, spelling, syntax or errors. - Vital Signs Vital signs: Temp Pulse Resp BP Pulse Ox 98.5 F 62 18 151/78 H 94 12/11/19 12:33 12/11/19 12:33 12/11/19 12:33 12/11/19 12:33 12/11/19 12:33 - Diagnostic Test Radiology reviewed: Image reviewed Discharge - Discharge Clinical Impression: Bronchitis URI (upper respiratory infection) Qualifiers: URI type: unspecified URI Qualified Code(s): J06.9 - Acute upper respiratory infection, unspecified Condition: Good Disposition: HOME, SELF-CARE Instructions: Upper Respiratory Illness ([facility]), Bronchitis ([facility]) Additional Instructions: You were seen for symptoms most consistent with bronchitis. This can take up to 12 weeks to fully resolve. This is generally due to a viral infection. Please f ollow-up with your primary doctor in the next 2-3 days. Return if you develop worsening cough, vomiting, fever >100.4, pass out, begin coughing blood, or have any other symptoms that are concerning to you. Please use the medications prescribed today as directed. Regarding Blood Pressure: Your blood pressure was noted to be greater than 120/80 at least once in the emergency room today. It is recommended that you follow-up with her primary care physician in the next week for repeat blood pressure check. The Centers for Medicare and Medicaid Services has specific recommendations regarding a person's blood pressure. There are several lifestyle modifications that are recommended in order to help lower your blood pressure. These include: Quitting smoking if you smoke. Reducing the amount of sodium in your diet. Getting regular exercise Limiting alcohol to no more than 2 drinks a day for men and one drink a day for women. Eating a healthy diet, including more fruits and vegetables, low fat dairy products, less saturated and total fat. Losing weight if you are overweight. FOLLOW-UP: Call your doctor's office and let them know your blood pressure was elevated and you were advised to get your blood pressure checked in the above time-line. If you are unable to get into your doctor's office in this time period, you can follow-up with a new physician (I have left the numbers below for a few primary care doctors affiliated with this [facility]) or return to the ER. PRIMARY CARE PHYSICIANS: Dr. Julio Yadav [address], [place] [address] [phone] Dr Arceo Address: [address] [place] [address] [place] [address] Dr Mckeon Address: [address] [place] [address] , [place] [address] Follow up with your [id number] hours for further care or return to the ED IMMEDIATELY if symptoms worsen or you have any concerns. If you cannot afford to follow up with your primary care physician a list of low cost clinics have been provided at the end of your discharge papers as well. Most prescribed medications have multiple side effects. The safest thing to do is when filling your prescription speak to your pharmacist regarding possible interactions with your normal home medications and over the counter medications such as Ibuprofen, Tylenol, Benadryl. If you experience any symptoms that cause you discomfort or concern you should discontinue the medication immediately and return to the emergency room or call your primary care physician. Prescriptions: Prednisone [Deltasone 20 mg Tablet] 2 tab PO DAILY 5 Days #10 tablet Forms: Elevated Blood Pressure Referrals: DNAIELLE MCKINNEY MD [Primary Care Provider] - Follow up as needed
--- NOTE | 2019-12-11 11:37 | RADIOLOGY REPORT (SQ) ---
EXAM DESCRIPTION: CHEST 2 VIEWS COMPLETED DATE/TIME: 12/11/2019 11:06 am REASON FOR STUDY: cough fever COMPARISON: 06/04/2018 EXAM PARAMETERS: NUMBER OF VIEWS: two views TECHNIQUE: Digital Frontal and Lateral radiographic views of the chest acquired. RADIATION DOSE: NA LIMITATIONS: none FINDINGS: LUNGS AND PLEURA: No opacities, masses or pneumothorax. No pleural effusion. MEDIASTINUM AND HILAR STRUCTURES: No masses or contour abnormalities. HEART AND VASCULAR STRUCTURES: Heart normal size. No evidence for failure. BONES: No acute findings. HARDWARE: None in the chest. OTHER: No other significant finding. IMPRESSION: NO ACUTE RADIOGRAPHIC FINDING IN THE CHEST. TECHNICAL DOCUMENTATION: JOB ID: [id number] 2010 [employer]- All Rights Reserved Reading location - IP/workstation name: [email or web address]
[2019-12-11 11:58] LABS: A TYPE INFLUENZA AG NEGATIVE (NEGATIVE); B INFLUENZA AG NEGATIVE (NEGATIVE)
[2019-12-11] MEDS ORDERED: ALBUTEROL SULFATE HFA (90 MCG/PUFF) 8 GM MDI (1 MDI/ER DISP) IH SCH (12:30)
[2019-12-11 12:33] VITALS: BP 151/78
== END 2019-12-11 12:41 | disposition home or self-care (01) ==
LOC: ER 08:48
DX: J40 Bronchitis, not specified as acute or chronic (principal); J06.9 Acute upper respiratory infection, unspecified; R05 Cough; R50.9 Fever, unspecified; M79.10 Myalgia, unspecified site; J02.9 Acute pharyngitis, unspecified; R06.2 Wheezing; M19.90 Unspecified osteoarthritis, unspecified site; I10 Essential (primary) hypertension; E03.9 Hypothyroidism, unspecified; Z79.899 Other long term (current) drug therapy; Z79.1 Long term (current) use of non-steroidal anti-inflammatories (NSAID); R09.81 Nasal congestion
CPT/HCPCS: 94640; 99283; 87804; 71046; A9270 ×4; J3490; J7512; J7620

== ENCOUNTER → 2020-06-13 | Outpatient (CLI) | payer MEDICARE, OTHER ==
[2020-06-13 08:06] LABS: ABSOLUTE BASOPHILS # (AUTO) 0.1 10^3/uL (0.0-0.2); ABSOLUTE EOSINOPHILS # (AUTO) 0.2 10^3/uL (0.0-0.6); ABSOLUTE LYMPHOCYTES (AUTO) 2.5 10^3/uL (0.5-4.7); ABSOLUTE MONOCYTES (AUTO) 0.5 10^3/uL (0.1-1.4); ABSOLUTE NEUT (AUTO) 3.2 10^3/uL (1.7-8.2); BASOPHILS % (AUTO) 0.9 % (0-2); HEMATOCRIT 38.8 % (36.0-47.0); HEMOGLOBIN 13.1 g/dL (12.0-15.5); LYMPHOCYTES % (AUTO) 38.5 % (13-45); MEAN CORPUSCULAR HEMOGLOBIN 27.6 pg (27.0-33.4); MEAN CORPUSCULAR HGB CONC 33.8 g/dL (32.0-36.0); MEAN CORPUSCULAR VOLUME 82 fl (80-97); MONOCYTES % (AUTO) 8.1 % (3-13); PLATELET COUNT 209 10^3/uL (150-450); RED BLOOD COUNT 4.75 10^6/uL (3.72-5.28); RED CELL DISTRIBUTION WIDTH 14.2 % (11.5-14.0); SEGMENTED NEUTROPHILS % (AUTO) 49.5 % (42-78); TOTAL CELLS COUNTED % (AUTO) 100 %; WHITE BLOOD COUNT 6.5 10^3/uL (4.0-10.5)
[2020-06-13 08:28] LABS: ALBUMIN 4.1 g/dL (3.5-5.0); ALKALINE PHOSPHATASE 73 U/L (38-126); ANION GAP 7 (5-19); ASPARTATE AMINO TRANSFERASE 21 U/L (14-36); BILIRUBIN,DIRECT 0.3 mg/dL (0.0-0.4); BILIRUBIN,TOTAL 0.5 mg/dL (0.2-1.3); BLOOD UREA NITROGEN 21 mg/dL (7-20); CALCIUM 8.8 mg/dL (8.4-10.2); CARBON DIOXIDE 29 mmol/L (22-30); CHLORIDE 106 mmol/L (98-107); CHOLESTEROL 184.03 mg/dL (0-200); GLUCOSE 102 mg/dL (75-110); POTASSIUM 4.5 mmol/L (3.6-5.0); TOTAL PROTEIN 6.9 g/dL (6.3-8.2); TRIGLYCERIDES 132 mg/dL (<150)
[2020-06-13 08:39] LABS: DIRECT LDL 89 mg/dL (<100)
== END ==
LOC: OD 07:25
PROVIDERS: ATTEND Internal Medicine
DX: I10 Essential (primary) hypertension (principal); E78.5 Hyperlipidemia, unspecified; E03.9 Hypothyroidism, unspecified; K21.9 Gastro-esophageal reflux disease without esophagitis; E16.2 Hypoglycemia, unspecified
CPT/HCPCS: 36415; 80053; 80061; 83036; 83525; 84443; 85025

== ENCOUNTER → 2020-09-07 | Outpatient (CLI) | payer MEDICARE, OTHER ==
[2020-09-07 17:54] LABS: ALBUMIN 4.7 g/dL (3.5-5.0); ALKALINE PHOSPHATASE 79 U/L (38-126); ANION GAP 10 (5-19); ASPARTATE AMINO TRANSFERASE 26 U/L (14-36); BILIRUBIN,DIRECT 0.2 mg/dL (0.0-0.4); BILIRUBIN,TOTAL 0.6 mg/dL (0.2-1.3); BLOOD UREA NITROGEN 18 mg/dL (7-20); CALCIUM 9.6 mg/dL (8.4-10.2); CARBON DIOXIDE 30 mmol/L (22-30); CHLORIDE 100 mmol/L (98-107); GLUCOSE 84 mg/dL (75-110); POTASSIUM 4.1 mmol/L (3.6-5.0); TOTAL PROTEIN 7.9 g/dL (6.3-8.2)
== END ==
LOC: OD 15:13
PROVIDERS: ATTEND Internal Medicine
DX: E03.9 Hypothyroidism, unspecified (principal); I10 Essential (primary) hypertension
CPT/HCPCS: 36415; 80053; 84443

== ENCOUNTER 2020-10-09 15:30 | Emergency (ER) | payer MEDICARE, OTHER ==
[2020-10-09 16:14] LABS: ABSOLUTE BASOPHILS # (AUTO) 0.1 10^3/uL (0.0-0.2); ABSOLUTE EOSINOPHILS # (AUTO) 0.1 10^3/uL (0.0-0.6); ABSOLUTE LYMPHOCYTES (AUTO) 2.2 10^3/uL (0.5-4.7); ABSOLUTE MONOCYTES (AUTO) 0.6 10^3/uL (0.1-1.4); ABSOLUTE NEUT (AUTO) 7.3 10^3/uL (1.7-8.2); BASOPHILS % (AUTO) 0.6 % (0-2); EOSINOPHILS % (AUTO) 1.3 % (0-6); HEMOGLOBIN 13.5 g/dL (12.0-15.5); LYMPHOCYTES % (AUTO) 21.6 % (13-45); MEAN CORPUSCULAR HEMOGLOBIN 26.6 pg (27.0-33.4); MEAN CORPUSCULAR HGB CONC 33.8 g/dL (32.0-36.0); MEAN CORPUSCULAR VOLUME 79 fl (80-97); MONOCYTES % (AUTO) 5.7 % (3-13); PLATELET COUNT 211 10^3/uL (150-450); RED BLOOD COUNT 5.09 10^6/uL (3.72-5.28); SEGMENTED NEUTROPHILS % (AUTO) 70.8 % (42-78); TOTAL CELLS COUNTED % (AUTO) 100 %; WHITE BLOOD COUNT 10.3 10^3/uL (4.0-10.5)
[2020-10-09 16:32] LABS: ALBUMIN 4.3 g/dL (3.5-5.0); ALKALINE PHOSPHATASE 100 U/L (38-126); ANION GAP 10 (5-19); ASPARTATE AMINO TRANSFERASE 34 U/L (14-36); BILIRUBIN,DIRECT 0.3 mg/dL (0.0-0.4); BILIRUBIN,TOTAL 0.8 mg/dL (0.2-1.3); BLOOD UREA NITROGEN 11 mg/dL (7-20); CALCIUM 9.1 mg/dL (8.4-10.2); CARBON DIOXIDE 26 mmol/L (22-30); CHLORIDE 102 mmol/L (98-107); GLUCOSE 166 mg/dL (75-110); TOTAL PROTEIN 7.6 g/dL (6.3-8.2)
--- NOTE | 2020-10-09 17:02 | RADIOLOGY REPORT (SQ) ---
EXAM DESCRIPTION: CHEST SINGLE VIEW IMAGES COMPLETED DATE/TIME: 10/09/2020 4:39 pm REASON FOR STUDY: shortness of breathe COMPARISON: None. EXAM PARAMETERS: NUMBER OF VIEWS: One view. TECHNIQUE: Single frontal radiographic view of the chest acquired. RADIATION DOSE: NA LIMITATIONS: None. FINDINGS: LUNGS AND PLEURA: No opacities, masses or pneumothorax. No pleural effusion. MEDIASTINUM AND HILAR STRUCTURES: Prominent right hilar fullness. HEART AND VASCULAR STRUCTURES: Heart normal in size. Normal vasculature. BONES: No acute findings. HARDWARE: None in the chest. OTHER: No other significant finding. IMPRESSION: PROMINENT RIGHT HILAR FULLNESS CONCERNING FOR MASS OR ADENOPATHY. OTHERWISE NO ACUTE RA DIOGRAPHIC FINDING IN THE CHEST. TECHNICAL DOCUMENTATION: JOB ID: [id number] 2010 [employer]- All Rights Reserved Reading location - IP/workstation name: [email or web address]
[2020-10-09 17:24] LABS: TROPONIN I 0.097 ng/mL
--- NOTE | 2020-10-09 17:57 | ER Document Report ---
ED General - General TRAVEL OUTSIDE OF THE [place] IN LAST 30 DAYS: No <GABRIEL FERGUSON - Last Filed: 10/09/20 23:12> <RUBA PATE JR - Last Filed: 10/10/20 07:45> - General Chief Complaint: Shortness Of Breath Stated Complaint: SHORTNESS OF BREATH Time Seen by Provider: 10/09/20 16:35 Primary Care Provider: MERCED YADAV MD [Primary Care Provider] - Follow up as needed - [facility] Notes: Patient is a 6-year-old female who presents emergency department for evaluation of sudden onset shortness of breath. She states she had one episode of this last week and it happened again today. She states that she was walking across her floor when she became acutely short of breath. She called 911. EMS found the patient to have an O2 sat of 79% on room air. She has no pre-existing lung disease. She is placed on a nonrebreather, and presents to the hospital for further evaluation. The patient states she has had a minimal cough. She has a history of swelling in the past but states that at this point the edema in her legs is significantly improved over baseline. She said no fevers or chills. No nausea or vomiting. She denies any anosmia. Normal urination, normal bowel movements. No recent changes in her medications. (GABRIEL FERGUSON) - Related Data Allergies/Adverse Reactions: No Known Allergies Allergy (Verified 12/11/19 10:06) Past Medical History - General Information source: Patient - Social History Smoking Status: Former Smoker Chew tobacco use (# tins/day): No Frequency of alcohol use: None Drug Abuse: None Family History: Hypertension - Past Medical History Cardiac Medical History: Reports: Hx Hypertension, Hx Heart Murmur Denies: Hx Atrial Fibrillation, Hx Coronary Artery Disease, Hx Heart Attack, Hx Hypercholesterolemia, Hx Peripheral Vascular Disease Pulmonary Medical History: Denies: Hx Sleep Apnea - NOT DIAGNOSED- HAVING TEST SOON Neurological Medical History: Endocrine Medical History: Reports: Hx Hypothyroidism - NODULES ON THYROID. Denies: Hx Diabetes Mellitus Type 1, Hx Diabetes Mellitus Type 2, Hx Graves' Disease, Hx Hyperthyroidism Malignancy Medical History: GI Medical History: Reports: Hx Gastroesophageal Reflux Disease. Denies: Hx Crohn's Disease, Hx Hiatal Hernia, Hx Irritable Bowel, Hx Liver Failure, Hx Pancreatitis, Hx Ulcer Musculoskeletal Medical History: Reports Hx Arthritis, Denies Hx Fibromyalgia, Denies Hx Muscular Dystrophy, Denies Hx Systemic Lupus Erythematosus Traumatic Medical History: Denies: Hx Fractures Past Surgical History: Reports: Hx Thyroid Surgery, Hx Tubal Ligation. Denies: Hx Appendectomy, Hx Bowel Surgery, Hx Section, Hx Cholecystectomy, Hx Colostomy, Hx Coronary Artery Bypass Graft, Hx Gastric Bypass Surgery, Hx Herniorrhaphy, Hx Hysterectomy, Hx Mastectomy, Hx Pacemaker, Hx Tonsillectomy - Immunizations Hx Diphtheria, Pertussis, Tetanus Vaccination: Yes Hx Pneumococcal Vaccination: 02/02/18 <GABRIEL FERGUSON - Last Filed: 10/09/20 23:12> Review of Systems - Review of Systems Constitutional: Weakness EENT: No symptoms reported Cardiovascular: No symptoms reported Respiratory: See HPI Gastrointestinal: No symptoms reported Genitourinary: No symptoms reported Musculoskeletal: No symptoms reported Skin: No symptoms reported Neurological/Psychological: No symptoms reported <GABRIEL FERGUSON - Last Filed: 10/09/20 23:12> Physical Exam <GABRIEL FERGUSON - Last Filed: 10/09/20 23:12> - Vital signs Vitals: Temp 98.3 F 10/09/20 15:30 - Notes Notes: This is a 69-year-old female who appears her stated age, in a mild amount of distress. Her when I walk into the room she is on a nonrebreather and oxygenating at 99 to 100%. She is mildly tachypneic with occasional pursed lip breathing. Vital signs reviewed, please refer to chart. Head is normocephalic, atraumatic. Pupils equal round, reactive to light. Neck is supple without meningismus. Heart is regular rate and rhythm. Lungs reveal diminished breath sounds with very scant wheezes in the bases bilaterally. Abdomen is soft, nontender, normoactive bowel sounds throughout. Extremities without cyanosis, clubbing. Pitting edema to the pretibial regions. Posterior calves are nonten laly. Peripheral pulses are equal. Skin is warm and dry. Patient is awake, alert, neurological exam is nonfocal. (GABRIEL FERGUSON) Course - Laboratory Results Result Diagrams: 10/09/20 15:49 10/09/20 15:49 Critical Laboratory Results Reviewed: No Critical Results - Radiology Results Critical Radiology Results Reviewed: No Critical Results <GABRIEL FERGUSON Kasia - Last Filed: 10/09/20 23:12> - Laboratory Results Result Diagrams: 10/09/20 15:49 10/09/20 15:49 <RUBA PATE - Last Filed: 10/10/20 07:45> - Re-evaluation Re-evalutation: 10/09/20 17:55 Patient presents emergency department for evaluation of dyspnea. She was found to be markedly hypoxic. 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 I have titrated her down, she is currently 92% on 4 L. She is not oxygen dependent at home. Her respiratory rate has been ranging between 22 and 30. Laboratory investigation show mildly elevated proBNP and a mildly indeterminately elevated troponin. The patient really has not any chest pain to speak of. I am concerned about the possibility of Covid in this patient. I am also concerned about the possibility of pulmonary embolus. Chest x-ray has been ordered and interpreted by radiology showing a right hilar fullness concerning for possible mass. Given this and her hypoxia, CT angiogram of the chest has been ordered. Will order rapid Covid is her significant hypoxia will require admission. She is currently stable, we will continue to monitor. 10/09/20 19:34 I preliminarily evaluated patient CTA which reveals obvious saddle pulmonary embolus and extensive clot burden. Heparin has been ordered. Still awaiting rapid Covid. 10/09/20 21:16 Patient's heart rate has begun to climb. Her resting heart rate was in the 90s, she is now around 108. Her blood pressure remains in the 130s. We do not have any ICU beds at this time, which I do believe would be the most appropriate disposition for this patient. I have contacted [facility], they do not have any ICU beds and are on regional management. I have asked for a consultation with vascular in regards to the possible use of thrombolytic therapy. I did speak directly to the patient's daughter, have notified her of the possible need for transfer. 10/09/20 22:54 Patient has improved significantly in regards to her vital signs. Her heart rate is currently 87, blood pressure stable at 118 systolic, respiratory rate is now in the 20s. She is 97% on 6 L per nasal cannula. I spoke initially to [facility], and again they do not have any beds. I am still awaiting consultation from the vascular surgeon, who is unfortunately indisposed at this time doing a procedure. I am still awaiting his phone call. I called [facility], they have no beds. I called [facility], they are only e xcepting ICU patients, given this patient's vital signs, she does not meet ICU criteria. We are currently holding patients for [place]. At this point the patient has clinically improved. Care of this patient will be turned over to another ED physician for ultimate disposition. In short, however, my hope is that continued blood thinners will continue to yield positive results. I will update the daughter with this as well. 10/09/20 23:[address] Mckay, on-call vascular surgeon at [facility]. He did have the opportunity to review the images. He states that despite her heavy clot bur den, she is in fact not showing a significantly dilated right heart or signs of significant strain. Unfortunately, based on their diversion status, he cannot except the patient. He states, however, that it is reasonable, especially given her current vitals, to treat this patient with continued heparin drip. He does not recommend systemic thrombolytics in the absence of significant hypotension o r "the crashing patient." Patient is currently stable. Will contact repeat facilities tomorrow if she cannot be accepted by medicine service. (GABRIEL FERGUSON) - Vital Signs Vital signs: Temp Pulse Resp BP Pulse Ox 98.3 F 28 H 146/106 H 94 10/09/20 15:45 10/10/20 06:01 10/10/20 06:01 10/10/20 06:01 - Laboratory Results Laboratory Results Interpreted: 10/09/20 10/09/20 10/09/20 15:49 15:49 15:49 MCV 79 L MCH 26.6 L PT APTT ABG pO2 ABG HCO3 ABG Total CO2 ABG O2 Saturation Glucose 166 H NT-Pro-B Natriuret Pep 425 H 10/09/20 10/09/20 10/10/20 15:49 18:59 01:45 MCV MCH PT 10.6 L APTT > 235.0 H* ABG pO2 56.3 L ABG HCO3 24.7 H ABG Total CO2 25.8 H ABG O2 Saturation 90.9 L Glucose NT-Pro-B Natriuret Pep Critical Care Note - Critical Care Note Total time excluding time spent on procedures (mins): 45 <GABRIEL FERGUSON - Last Filed: 10/09/20 23:12> <RUBA PATE JR - Last Filed: 10/10/20 07:45> - Critical Care Note Comments: I called [facility] and spoke with Dr. Spangler vascular surgeon at [phone] and he advises they have no beds and considering the scan from last night he advises that patient should not be sent to [facility].I spoke with Dr Solorio at 0655 but he advised all hospitalist were in conference. I had spoken with at 0630. I again called hospitalist at 0725 ; I spoke with Chaitanya at ICU at [phone] and she advises medicine may handle this and I spoke with Dr. Bradley at [phone]. She advises me that that she will speak with Chaitanya. (RUBA PATE JR) Discharge <GABRIEL FERGUSON - Last Filed: 10/09/20 23:12> <RUBA PATE JR - Last Filed: 10/10/20 07:45> - Discharge Clinical Impression: Hypoxia Saddle pulmonary embolus Qualifiers: Chronicity: acute Acute cor pulmonale presence: unspecified Qualified Code(s): I26.92 - Saddle embolus of pulmonary artery without acute cor pulmonale Condition: Stable Disposition: ADMITTED INPATIENT Referrals: MERCED YADAV MD [Primary Care Provider] - Follow up as needed
[2020-10-09 19:23] LABS: ARTERIAL BLOOD BASE EXCESS 1.2 mmol/L; ARTERIAL BLOOD FIO2 6L; ARTERIAL BLOOD H2CO3 1.08 mmol/L (1.05-1.35); ARTERIAL BLOOD HCO3 24.7 mmol/L (20-24); ARTERIAL BLOOD O2 SATURATION 90.9 % (94-98); ARTERIAL BLOOD PH 7.45 (7.35-7.45); ARTERIAL BLOOD PO2 56.3 mmHg (80-100); ARTERIAL BLOOD TOTAL CO2 25.8 mmol/L (21-25)
[2020-10-09] MEDS ORDERED: HEPARIN SOD (PORCINE) 1,000 UNIT/ML 10 ML VIAL IV ONE (19:33)
[2020-10-09] MEDS ORDERED: HEPARIN SODIUM,PORCINE/D5W 25,000 UNIT/250 ML RTUINJ IV PRN (19:33)
[2020-10-09 19:45] LABS: INTERNATIONAL RATION (INR) 0.74; PROTHROMBIN TIME 10.6 SEC (11.4-15.4)
[2020-10-09 19:46] LABS: PARTIAL THROMBOPLASTIN TIME 28.6 SEC (23.5-35.8)
--- NOTE | 2020-10-09 19:48 | RADIOLOGY REPORT (SQ) ---
EXAM DESCRIPTION: CTA CHEST IMAGES COMPLETED DATE/TIME: 10/09/2020 7:26 pm REASON FOR STUDY: hypoxia COMPARISON: 2014 TECHNIQUE: CT scan of the chest performed using helical scanning technique with dynamic intravenous contrast injection. Images reviewed with lung, soft tissue and bone windows. Reconstructed coronal and sagittal MPR images reviewed. Additional 3 dimensional post-processing performed to develop Maximal Intensity Projection images (TN P). All images stored on PACS. All CT scanners at this facility use dose modulation, iterative reconstruction, and/or weight based d osing when appropriate to reduce radiation dose to as low as reasonably achievable (ALARA). [facility]: Dose Right [facility]: CareDose [facility]: Dose Right [facility]: Teradose 4D [facility]: ZappyLab CONTRAST TYPE AND DOSE: contrast/concentration: Isovue 350.00 mmol/ml; Total Contrast Delivered: 75. 0 ml; Total Saline Delivered: 66.0 ml Contrast bolus optimized for the pulmonary arteries. Not diagnostic for the aorta. RENAL FUNCTION: BUN 11 creatinine 0.91 RADIATION DOSE: CT Rad equipment meets quality standard of care and radiation dose reduction techniq ues were employed. CTDIvol: 15.0 - 15.5 mGy. DLP: 629 mGy-cm. . LIMITATIONS: None. FINDINGS: LUNGS AND PLEURA: No masses, infiltrates, or pneumothorax. No pleural effusions or pleura l calcifications. AORTA AND GREAT VESSELS: No aneurysm. Contrast bolus not optimized for the aorta. HEART: No pericardial effusion. No significant coronary artery calcifications. PULMONARY ARTERIES: Saddle embolus extending into the lower lobe pulmonary arteries and left upper lo be pulmonary artery. HILAR AND MEDIASTINAL STRUCTURES: Right hilar adenopathy. HARDWARE: None in the chest. UPPER ABDOMEN: No significant findings. Limited exam. THYROID AND OTHER SOFT TISSUES: No masses. No adenopathy. BONES: No acute or significant finding. 3D MIPS: Confirm above findings. OTHER: No other significant finding. IMPRESSION: Saddle embolus as described. Significant clot burden. Right hilar adenopathy. COMMENT: Quality ID # [id number]: Final reports with documentation of one or more dose reduction techniques (e.g., Automated exposure control, adjustment of the mA and/or kV according to patient size, use of iterative reconstruction technique) TECHNICAL DOCUMENTATION: JOB ID: [id number] 2010 [employer]- All Rights Reserved Reading location - IP/workstation name: [email or web address]
[2020-10-09] MEDS ORDERED: HEPARIN SOD (PORCINE) 1,000 UNIT/ML 10 ML VIAL IV PRN (22:33)
--- NOTE | 2020-10-10 00:43 | EKG REPORT ---
SEVERITY:- ABNORMAL ECG - SINUS RHYTHM LVH WITH IVCD, LAD AND SECONDARY REPOL ABNRM : Confirmed by: Ania Macias 10-Oct-2020 00:42:35
--- NOTE | 2020-10-10 11:15 | XCELERA REPORT ---
[address] [address] Transthoracic Echocardiogram Report Name: SHAY PORTILLO V Age: 69 yrs Gender: Female : 1950 Patient Status: Emergency Patient Location: ER Study Date: 10/10/2020 08:45 AM Height: 66 in Weight: 298 lb BSA: 2.4 m2 Procedure: A complete two-dimensional transthoracic echocardiogram was performed (2D, M-mode, spectral and color flow Doppler). Difficult study due to patient not being able to lay on left side or hold her breath. Images from the parasternal window were difficult to obtain and are suboptimal in quality. Reason For Study: saddle embolus Ordering Physician: DANNY ROUSE Performed By: Mariana Martin Interpretation Summary There is mild concentric left ventricular hypertrophy. Left ventricular systolic function is low normal. The Ejection Fraction estimate is 45-50%. Doppler measurements suggest impaired left ventricular relaxation, which is associated with grade I/IV or mild diastolic dysfunction. Regional wall motion abnormalities cannot be excluded due to limited visualization. Borderline dilated RV without clear evidence of strain although images are not optimal. Mild MR, moderate , trace to mild TR. Pulmonic valve was not well visualized. Dilated IVC with <50% respiratory variation consistent with elevated right atrial pressure. MMode/2D Measurements & Calculations RVDd: 3.6 cm LVIDd: 3.6 cm FS: 22.3 % LA dimension: IVSd: 1.3 cm LVIDs: 2.8 cm EDV(Teich): 3.4 cm 53.4 ml LVPWd: 1.2 cm ESV(Teich): 28.9 ml EF(Teich): 45.9 % LVLd ap4: 9.3 cm SV(MOD-sp4): EDV(MOD-sp4): 63.0 ml 135.0 ml LVLs ap4: 7.6 cm ESV(MOD-sp4): 72.0 ml EF(MOD-sp4): 46.7 % Doppler Measurements & Calculations MV E max kasia: MV P1/2t max kasia: Ao V2 max: LV V1 max P.4 cm/sec 96.0 cm/sec 338.1 cm/sec 52.7 mmHg MV A max kasia: MV P1/2t: 80.1 msec Ao max PG: LV V1 max: 119.0 cm/sec 48.1 mmHg 363.0 cm/sec MVA(P1/2t): 2.7 cm2 MV E/A: 0.70 MV dec slope: 351.2 cm/sec2 MV dec time: 0.19 sec PA V2 max: TR max kasia: MV P1/2t-pr_phl: 131.9 cm/sec 239.4 cm/sec 80.1 msec PA max P.0 mmHgTR max P.9 mmHg Left Ventricle There is mild concentric left ventricular hypertrophy. Left ventricular systolic function is low normal. The Ejection Fraction estimate is 45-50%. Doppler measurements suggest impaired left ventricular relaxation, which is associated with grade I/IV or mild diastolic dysfunction. Regional wall motion abnormalities cannot be excluded due to limited visualization. Right Ventricle The right ventricle is borderline dilated. The right ventricular systolic function is normal. Atria The right atrium is normal. The left atrial size is normal. Interarterial septum not well visualized and not well dopplered. Cannot comment on ASD/PFO presence. Mitral Valve The mitral valve is normal in structure and function. There is no evidence of mitral valve prolapse. There is no mitral valve stenosis. There is a mild amount of mitral regurgitation. Aortic Valve The aortic valve is normal in structure and functions normally. There is no aortic valvular vegetation. There is moderate aortic stenosis. No aortic regurgitation is present. Tricuspid Valve The tricuspid is normal in structure and function. There is no tricuspid valve prolapse. There is no tricuspid stenosis. There is a trace to mild amount of tricuspid regurgitation. Pulmonic Valve The pulmonic valve is not well visualized. Great Vessels The aortic root is not well visualized. The inferior vena cava appeared dilated and decreased < 50% with respiration (RAP 15-20 mmHg). Effusions There is no pericardial effusion. There is no pleural effusion. : DANNY ROUSE Antonio
--- NOTE | 2020-10-10 13:56 | PDOC CONSULTATION ---
Consultation Consult Date: 10/10/20 Attending physician:: MERCED YADAV Provider Consulted: DANNY ROUSE Consult reason:: SOB History of Present Illness Admission Date/PCP: MERCED YADAV MD Patient complains of: SOB History of Present Illness: SHAY PORTILLO is a 69 year old female, PMH HTN, hypothyroidism, who was brought in by EMS due to SOB. Patient was apparently well until yesterday afetrnoon 2 pm when she suddenly developed SOB not relieved by rest. SOB persisted hence EMS was called who noted that her O2 sat 79% on room air. She was placed on a nonrebreather which improved her O2 sat to 95%. According to the patient she had a similar episode 6 days prior with sudden onset of shortness of breath that spontaneously resolved. Denies any chest pain, fever, cough. She denied any recent surgery, no recent travel, no prolonged immobilization. She has chronic leg edema which is at its baseline. She reports no previous history of blood clots. In the emergency room blood pressure 113/70, heart rate 95, respiratory rate 28, sat 99% on 5L of nasal cannula. CBC was unremarkable. CMP showed mild hyperglycemia 166. BNP 425. Troponin 0.0 97. Chest x-ray showed prominent right hilar fullness concerning for mass or adenopathy. CT angio of the chest showed saddle embolus extending into the right lower lobe pulmonary arteries and left upper lobe pulmonary artery. Patient was started on heparin drip. Case was discussed with Dr. Solorio last night. Patient was not accepted for admission due to saddle embolus and unstable vital signs. Hospitalist service was consulted to help manage patient in the ED while ED physician work on his transfer. Repeat troponin done today showed increasing trend 0.97. Patient is also still requiring oxygen 5 L via nasal cannula day and her saturation. Stat echo showed EF of 45 to 50%, borderline dilated RV without clear evidence of strain although images are not optimal. Mild MR, moderate AAS, trace to mild TR. Patient is too unstable to be admitted to floors and should ideally be in the ICU or transfer to a tertiary care center for possible TPA for saddle em bolus and significant clot burden. Past Medical History Cardiac Medical History: Reports: None, Hypertension, Heart Murmur Denies: Atrial Fibrillation, Coronary Artery Disease, Myocardial Infarction, Hyperlipidema, Peripheral Vascular Disease Pulmonary Medical History: Reports: None Denies: Sleep Apnea - NOT DIAGNOSED- HAVING TEST SOON Neurological Medical History: Endocrine Medical History: Reports: Hypothyroidism - NODULES ON THYROID Denies: Diabetes Mellitus Type 1, Diabetes Mellitus Type 2, Hyperthyroidism Malignancy Medical History: Reports: None GI Medical History: Reports: Gastroesophageal Reflux Disease Denies: Crohn's Disease, Hiatal Hernia Musculoskeltal Medical History: Reports: Arthritis Denies: Fibromyalgia Hematology: Past Surgical History Past Surgical History: Reports: Tubal Ligation Denies: Amputation, Appendectomy, Section, Cholecystectomy, Colostomy, Coronary Artery Bypass Graft, Gastric Bypass Surgery, Herniorrhaphy, Hysterectomy, Mastectomy, Pacemaker, Tonsillectomy Social History Information Source: Patient Lives with: Family Smoking Status: Former Smoker Electronic Cigarette use?: No Hx Recreational Drug Use: No Hx Prescription Drug Abuse: No Family History Family History: Hypertension, Malignancy Parental Family History Reviewed: Yes Children Family History Reviewed: Yes Sibling(s) Family History Reviewed.: Yes Medication/Allergy Home Medications: Amlodipine Besylate 10 mg PO DAILY 12/02/15 Furosemide [Lasix 40 mg Tablet] 40 mg PO DAILY 12/02/15 Acetaminophen [Tylenol] 650 mg PO Q6HP PRN 10/09/20 Calcium Carbonate/Vitamin D3 [Calcium 600-Vit D3 400 Caplet] 1 tab PO DAILY 02/22 Levothyroxine Sodium 100 mcg PO Q6AM 10/09/20 Lisinopril 20 mg PO DAILY 10/09/20 Meclizine HCl [Antivert 25 mg Tablet] 25 mg PO DAILYP PRN 10/09/20 Allergies/Adverse Reactions: No Known Allergies Allergy (Verified 12/11/19 10:06) Review of Systems Cardiovascular: PRESENT: dyspnea on exertion Gastrointestinal: ABSENT: dysphagia, heartburn, hematemesis Integumentary: PRESENT: as per HPI. ABSENT: diaphoresis Neurological: ABSENT: abnormal speech, confusion, convulsions, dizziness Psychiatric: ABSENT: hallucinations, suicidal ideation Endocrine: ABSENT: heat intolerance Physical Exam Vital Signs: Temp Pulse Resp BP Pulse Ox 98.3 F 28 H 146/106 H 94 10/09/20 15:45 10/10/20 06:01 10/10/20 06:01 10/10/20 06:01 Intake & Output 10/09/20 10/10/20 10/11/20 06:59 06:59 06:59 Intake Total 134 116 Balance 134 116 Weight 135.352 kg General appearance: PRESENT: cooperative, mild distress, morbidly obese Head exam: PRESENT: atraumatic, normocephalic Eye exam: PRESENT: EOMI, PERRLA Neck exam: PRESENT: full ROM Respiratory exam: PRESENT: clear to auscultation kosta, symmetrical, unlabored Cardiovascular exam: PRESENT: RRR, +S1, +S2 GI/Abdominal exam: PRESENT: normal bowel sounds, soft. ABSENT: rebound, tenderness Extremities exam: PRESENT: full ROM Musculoskeletal exam: PRESENT: full ROM Neurological exam: PRESENT: alert, awake, oriented to person, oriented to place, oriented to time, oriented to situation Psychiatric exam: PRESENT: normal mood Skin exam: PRESENT: normal color Results Laboratory Results: 10/09/20 15:49 10/09/20 15:49 10/09/20 10/09/20 10/09/20 15:49 15:49 18:59 WBC 10.3 RBC 5.09 Hgb 13.5 Hct 40.0 MCV 79 L MCH 26.6 L MCHC 33.8 RDW 13.0 Plt Count 211 Seg Neutrophils % 70.8 Carbonic Acid 1.08 HCO3/H2CO3 Ratio 22:1 ABG pH 7.45 ABG pCO2 36.0 ABG pO2 56.3 L ABG HCO3 24.7 H ABG O2 Saturation 90.9 L ABG Base Excess 1.2 FiO2 6L Sodium 137.6 Potassium 4.0 Chloride 102 Carbon Dioxide 26 Anion Gap 10 BUN 11 Creatinine 0.91 Est GFR ( Amer) > 60 Glucose 166 H Calcium 9.1 Total Bilirubin 0.8 AST 34 Alkaline Phosphatase 100 Total Protein 7.6 Albumin 4.3 10/09/20 10/10/20 15:49 10:42 Troponin I 0.097 0.971 NT-Pro-B Natriuret Pep 425 H Impressions: Chest X-Ray 10/09/20 15:59 IMPRESSION: PROMINENT RIGHT HILAR FULLNESS CONCERNING FOR MASS OR ADENOPATHY. OTHERWISE NO ACUTE RADIOGRAPHIC FINDING IN THE CHEST. Chest/Abdomen CTA 10/09/20 17:52 IMPRESSION: Saddle embolus as described. Significant clot burden. Right hilar adenopathy. Assessment and Plan - Diagnosis (1) Acute respiratory failure with hypoxia Is this a current diagnosis for this admission?: Yes Plan: - Sudden onset SOB with O2sat 79% on RA per EMS - improved to 99% on 5L NC - RR 30 clear BS - CXR prominent right hilar fullness concerning for mass or adenopathy - CTA showed saddle embolus - started on heparin drip - continue O2 support - patient needs to be transferred to ICU or tertiary care center for possible tPA (2) Saddle pulmonary embolus Qualifiers: Chronicity: acute Acute cor pulmonale presence: unspecified Qualified Code(s): I26.92 - Saddle embolus of pulmonary artery without acute cor pulmonale Is this a current diagnosis for this admission?: Yes Plan: - came in due to sudden onset SOB with hypoxia 79% on RA - no prior hx of blood clot, no family hx, only risk factor would be obesity. - unstable by definition since her RR is 30s and require O2 support to maintain her sats, BP 146/106, HR 82 - Stat echo showed EF 45-50% dilated RV without clear evidence of strain altho ugh images are not optimal - troponin trending up 0.097>0.97 - EKG sinus rhythm - continue heparin drip - repeat troponin - patients needs to be transferred to tertiary care center. Patient is unstable for florr management (3) Hypertension Qualifiers: Hypertension type: essential hypertension Qualified Code(s): I10 - Essential (primary) hypertension Is this a current diagnosis for this admission?: Yes Plan: - on amlodipine and lisinopril - will hold for now due to saddle PE (4) Obesity Qualifiers: Obesity type: unspecified obesity type Obesity classification: unspecified obesity classification Is this a current diagnosis for this admission?: Yes Plan: - advised diet and weight loss - Plan Summary Summary: Discussed case with Dr. Myrick, patient is too unstable to be managed on floors therefore hospitalist joanne cannot accept patient for admission at this point. Advised to continue heparin drip while she is being transferred. - Time Time Spent with patient: 25-34 minutes Medications reviewed and adjusted accordingly: Yes Anticipated Discharge Disposition: Tertiary Anticipated Discharge Timeframe: within 24 hours
[2020-10-10 16:48] VITALS: BP 184/102
[2020-10-10] MEDS ORDERED: LISINOPRIL 10 MG TABLET PO ONE (16:51)
[2020-10-11] MEDS ORDERED: LEVOTHYROXINE SODIUM 0.1 MG TABLET PO SCH (06:00)
== END 2020-10-10 18:05 | disposition short-term general hospital (02) ==
LOC: ER 15:30
DX: I26.92 Saddle embolus of pulmonary artery without acute cor pulmonale (principal); J96.01 Acute respiratory failure with hypoxia; R05 Cough; R73.9 Hyperglycemia, unspecified; R53.1 Weakness; E66.01 Morbid (severe) obesity due to excess calories; R60.0 Localized edema; I45.9 Conduction disorder, unspecified; E03.9 Hypothyroidism, unspecified; I10 Essential (primary) hypertension; Z79.899 Other long term (current) drug therapy; Z87.891 Personal history of nicotine dependence; Z20.822 Contact with and (suspected) exposure to COVID-19
CPT/HCPCS: 93005; 96376; 99285; 96375; 96365; 96366 ×2; 96367; 36415; 82803; 85025; 85610; 85730; 0241U ×4; 80053; 84484; 83880; 93306; 71045; 71275; 93010; J1644 ×2; A9270; C9803